=== PATIENT | male | born 1980 | race Hispanic/Latino ===

== ENCOUNTER 2016-10-14 10:49 | Emergency (ER) | payer BC, OTHER ==
[2016-10-14] MEDS ORDERED: Lidocaine 1% w/Epinephrine 1:100K 30 ML VIAL ONE (10:56)
[2016-10-14] MEDS ORDERED: Bacitracin Zinc 1 Packet ONE (11:28)
--- NOTE | 2016-10-14 12:51 | PICIS ---
[facility] EMERGENCY RECORD TRIAGE (10:53 KMOR) TRIAGE NOTES: Lower lip laceration after falling from horse at 2200 last night. No loc. (10:53 KMOR) PATIENT: NAME: Masood Jay, AGE: 36, GENDER: male, : Kathleen 1980, TIME OF GREET: Sun Oct 14, 2016 10:50, PREFERRED LANGUAGE: Azerbaijani, ECODE BILLING MAP: [facility], SSN: [id number], Zip Code: [address], KG WEIGHT: 99.79, PHONE: , , , PERSON ID: [id number], PCP: Susan CHRISTINA JAMES. (10:53 KMOR) PAYMENT: [employer]. (11:18) COMPLAINT: Lip laceartion. (10:53 KMOR) ADMISSION: URGENCY: 3 Urgent, ADMISSION SOURCE: Home, TRANSPORT: CAR, BED: ER -02. (10:53 KMOR) ASSESSMENT: Assessment: A&OX4. RR EVEN AND UNLABORED. (10:56 KMOR) PAIN: No complaint of pain. (10:56 KMOR) SIRS SCORING: Heart Rate 55-109 (0), Temp range 96.8-101.1 (0), respiratory rate 12-24 (0), Mental Status altered: no (0), Infection or Suspected Infection: No. (10:56 KMOR) IMMUNIZATIONS: Flu vaccine up to date, Tetanus immunization up to date, Date of immunization: 2013, Pneumococcal vaccine not up to date. (10:56 KMOR) PROVIDERS: TRIAGE NURSE: Dottie Marr RN. (10:53 KMOR) VITAL SIGNS: Pulse 86, Resp 18, O2 Sat 94, on Room Air, Time 10/14/2016 10:52. (10:52 KMOR) BP 153/92, Temp 98.4, (Oral), Pain 0, Time 10/14/2016 10:54. (10:54 KMOR) KNOWN ALLERGIES No Known Drug Allergies CURRENT MEDICATIONS (10:54 KMOR) None VITAL SIGNS VITAL SIGNS: Pulse: 86, Resp: 18, O2 sat: 94 on Room Air, Time: 10/14/2016 10:52. (10:52 KMOR) BP: 153/92, Temp: 98.4 (Oral), Pain: 0, Time: 10/14/2016 10:54. (10:54 KMOR) BP: 150/93, Pulse: 79, Resp: 16, Pain: 0, O2 sat: 96 on RA, Time: 10/14/2016 11:46. (11:46 KMOR) NURSING ASSESSMENT: SKIN CONSTITUTIONAL: Complex assessment performed, Patient arrives ambulatory, Gait steady, History obtained from patient, Patient appears comfortable, Patient cooperative, Patient alert, Oriented to person, place and time, Skin warm, Skin dry, Skin normal in color, Mucous membranes pink, Mucous membranes moist, Patient is well-groomed, Patient complains of lip and chin laceration, horn of the saddle struck patient in the face while being bucked off of a horse. happened at 2200 last night. pt denies LOC, denies problems &a-1R&a+25V*p+0X*d1763L*c202B*c15G*c2P*p-0X&a-25V&a+1R Name: Masood Jay : 1980 M36 MedRec: [id number] AcctNum: [id number] Prepared: Dasha Oct 14, 2016 11:58 by Interface Page 1 of 5 pMD [facility] EMERGENCY RECORD with vision, denies vomiting. pt has a sore left shoulder. (11:04 LGIB) SKIN: Inspection findings include laceration, to top of lip left side, no bleeding. laceration also to chin under bottom lip. (11:33 LGIB) NURSING PROCEDURE: DISCHARGE NOTE (11:46 KMOR) DISCHARGE: Patient discharged to home, ambulating without assistance, driving self, accompanied by //partner, Summary of Care printed/ provided, Transition record given to patient, Discharge instructions given to patient, Simple or moderate discharge teaching performed, by CARTER Sinclair, Discharge instructions and follow up reviewed with patient. Pt ambulatory to discharge desk., Prescriptions given and instructions on side effects given, Name of prescription(s) given: pcn, Above person(s) verbalized understanding of discharge instructions and follow-up care. BELONGINGS: Belongings remain with patient, Valuables remain with patient. VITAL SIGNS: BP: 150, / 93, Pulse: 79, Resp: 16, Pain: 0, O2 sat: 96, on: RA, Time: 1145. NURSING PROCEDURE: WOUND CARE (10:57 LGIB) TIMEOUT: Correct procedure verified, Correct site verified, Correct equipment utilized, Physician performing procedure Dr. Nolasco, Witnessed by CARTER Chen. WOUND CARE: Local infiltration with, 1% lidocaine with epinephrine, Wound repaired with sutures, by Dr Nolasco, Last tetanus shot received less than 5 years ago. SAFETY: Side rails up, Cart/Stretcher in lowest position, Call light within reach, Hospital ID band on. ORDER DETAILS Order Name: chart element #1, Status: Active, Time: 10:57 10/14/2016, User: System, - Ordered for: DO Nolasco Matthew, - Entered by: CARTER Mccoy, Phoebe Lou Oct 14, 2016 10:57, - Quantity: 1, Order Name: chart element #4, Status: Active, Time: 10:57 10/14/2016, User: System, - Ordered for: DO Nolasco Matthew, - Entered by: CARTER Mccoy Lauren - Dasha Oct 14, 2016 10:57, - Quantity: 1, Order Name: PROCEDURE SET-UP, Status: Done, Time: 11:03 10/14/2016, User: [email or web address], - Ordered for: DO Nolasco Matthew, - Entered by: DO Nolasco Matthew - Dasha Oct 14, 2016 10:57, - Quantity: 1. &a-1R&a+25V*p+0X*r7447G*c202B*c15G*c2P*p-0X&a-25V&a+1R Name: Jay Masood A : 1980 M36 MedRec: [id number] AcctNum: [id number] Prepared: Dasha Oct 14, 2016 11:58 by Interface Page 2 of 5 pMD [facility] EMERGENCY RECORD HPI LACERATION (11:44 MBRI) CHIEF COMPLAINT: Patient presents for evaluation of laceration to face, Patient presents for evaluation of laceration intra-orally, Patient presents for evaluation of laceration to lip, No foreign body, Not grossly contaminated, 2 wounds of the face: Upper right lip 1 cm through verm border, 2cm lat across the chin, through and through with lower int lip region. HISTORIAN: History provided by patient. MECHANISM OF INJURY: Alcohol use associated with this incident, Pt has fall last night and hit his lip and face. LOCATION: Symptoms are localized. QUALITY: Laceration quality straight. SEVERITY: Maximum severity of symptoms mild, Currently symptoms are mild. TIME COURSE: Sudden onset of symptoms, 15, hours prior to arrival, There has been no change in the patient's symptoms over time, are constant. ASSOCIATED WITH: No associated alcohol use, No associated bleeding, No associated erythema, No associated fever, No associated numbness, No associated significant tissue destruction, No associated tingling, No associated warmth, Denies any other complaints. COMPLICATING FACTORS: No complicating factors, no risk for infection. EXACERBATED BY: Patient's condition exacerbated by nothing. RELIEVED BY: Patient's condition relieved by nothing. TETANUS: Tetanus status up to date. ROS (11:47 MBRI) CONSTITUTIONAL: Negative constitutional review of systems. EYES: Negative eye review of systems. ENT: Negative ears, nose, throat review of systems. MUSCULOSKELETAL: Negative musculoskeletal review of systems. SKIN: Negative skin review of systems, Historian denies cellulitis, denies induration. NEUROLOGIC: Negative neurologic review of systems. HEMO/LYMPHATIC: Normal hematologic/lymphatic system review. PAST MEDICAL HISTORY (10:56 KMOR) MEDICAL HISTORY: No past medical history, Flu vaccine not up to date. MALE SURGICAL HISTORY: Patient has no surgical history. PSYCHIATRIC HISTORY: No previous psychiatric history. SOCIAL HISTORY: Patient drinks socially, every week, Patient denies drug use, Patient has no smoking history. PHYSICAL EXAM (11:47 MBRI) CONSTITUTIONAL: Vital signs reviewed. HEAD: Head exam included findings of, no Coronel's sign, No raccoon eyes, normocephalic, laceration superficial simple right upper lip, laceration through dermis horizontal chin,. EYES: Eye exam normal, Eye exam included findings of eyelids &a-1R&a+25V*p+0X*t1619F*c202B*c15G*c2P*p-0X&a-25V&a+1R Name: Masood Jay Laura : 1980 M36 MedRec: [id number] AcctNum: [id number] Prepared: Dasha Oct 14, 2016 11:58 by Interface Page 3 of 5 pMD [facility] EMERGENCY RECORD normal to inspection, Pupils equally round and reactive to light, Extraocular muscles intact. ENT: Ear exam normal, Nose exam normal, Pharynx exam normal, Uvula exam normal, Tonsil exam normal, Mouth exam included findings of, no lesions, Laceration noted, Tongue not elevated, wound of the internal lower lip. NO bleeding noted. PT with ext lower lip/chin lac and right upper lip lac. No bleeding at this time. NECK: Neck exam included findings of normal range of motion, no tenderness, no abrasions, no contusions, no ecchymosis. RESPIRATORY CHEST: Respiratory and chest exam normal. CARDIOVASCULAR: Cardiovascular assessment normal. BACK: Back exam included findings of normal inspection, no tenderness. UPPER EXTREMITY: Upper extremity exam normal, Upper extremity exam included findings of inspection normal, Range of motion normal. NEURO: Jeff coma scale 15, Neuro exam findings include patient oriented to person, place and time, Speech normal, Gait normal, Cranial nerves intact. SKIN: Skin exam included findings of skin warm, dry, and normal in color. EVENTS TRANSFER: Triage to Emergency Emergency Room -02. (Dasha Oct 14, 2016 10:53 KMOR) Removed from Emergency Emergency Room -02. (11:48 KMOR) O2SAT INTERPRETATION (10:58 MBRI) O2SAT: Oxygen saturation interpretation: Normal. LACERATION-SINGLE REPAIR TIMEOUT: Side and/or site verified. (11:30 MBRI) LACERATION REPAIR: Patient prepped and draped in usual sterile fashion, Wound irrigated with normal saline, Simple repair of laceration, to the lower lip, chin lateral, 2cm, total length 2.0 cm, Skin layer closed, using 5.0, prolene suture, 4 sutures, interrupted, After procedure, wound well approximated, antibiotic ointment applied, Tetanus status up to date, Patient tolerated the procedure well. (11:34 MBRI) Side and/or site verified, Patient identification confirmed, Sterile procedures observed, Verbal consent obtained, No contamination, Deep structures not involved, no bony deformity, no edema, no ecchymosis, no tendon involvement, no joint involvement, Wound not near a neurovascular bundle, No pulse deficit, Capillary refill greater than 2 seconds, No signs of compartment syndrome, Local infiltration with, 1% LIDOCAINE with epinephrine, 7mL, Patient prepped and draped in usual sterile fashion, Wound irrigated with normal saline, Simple repair of laceration, to the upper lip, right upper lip 1 cm through jose border no deep structures involved, total length 1.0 cm, Skin layer closed, using 5.0, prolene suture, 4 &a-1R&a+25V*p+0X*r6941I*c202B*c15G*c2P*p-0X&a-25V&a+1R Name: Masood Jay : 1980 M36 MedRec: [id number] AcctNum: [id number] Prepared: Dasha Oct 14, 2016 11:58 by Interface Page 4 of 5 pMD [facility] EMERGENCY RECORD sutures, interrupted, After procedure, wound well approximated, antibiotic ointment applied, Tetanus status up to date, Patient tolerated the procedure well, No foreign body present. (11:30 MBRI) PROBLEM LIST No recorded problems DIAGNOSIS (11:39 MBRI) FINAL: PRIMARY: lip laceration, ADDITIONAL: chin laceration, facial contusion. DISPOSITION PATIENT: Disposition Type: Discharge, Disposition: *Discharge Home, Condition: Improved. (11:39 MBRI) Patient left the department. (11:48 KMOR) INSTRUCTION (11:40 MBRI) DISCHARGE: LACERATION, LIP/MOUTH, CHIN LACERATION, SUTURE OR TAPE. FOLLOWUP: Susan CHRISTINA, [place], Internal Medicine, [address] [place] [id number], [phone], Follow up with Primary Care Physician as needed. SPECIAL: Please return for any further issues or concerns, we would be happy to see you. We hope you feel better soon. Tylenol or Advil for Pain May return to work Suture removal in 7 days. PRESCRIPTION (11:40 MBRI) PC Pen V K: TABLET : 500 mg : ORAL : Quantity: 1 Unit: tab(s) Route: ORAL Schedule: 4 times a day Dispense: 28 Unit: tab(s) May substitute. Refills: No Refills . NOTES: No refills. IMAGING (11:47 KMOR) *DISCHARGE INSTRUCTIONS RECEIPT: Image captured from scanner. *SUPPLY CHARGE SHEET: Image captured from scanner. Bañuelos: CONY=CARTER Marr, Dottie HARRIS=CARTER Mccoy, Phoebe ZIEGLER=DO Nolasco Matthew &a-1R&a+25V*p+0X*n9743V*c202B*c15G*c2P*p-0X&a-25V&a+1R Name: Abdiaziz Jayo Laura : 1980 6 MedRec: [id number] AcctNum: [id number] Prepared: aDsha Oct 14, 2016 11:58 by Interface Page 5 of 5 pMD [facility] MEDICATION RECONCILIATION You were seen in the Emergency Department on: SatOct 14, 2016 KNOWN ALLERGIES No Known Drug Allergies HOME MEDICATIONS None Notes from the emergency department Reviewed with patient PRESCRIPTIONS (1) &a-1R&a+25V*p+0X*v6729K*c202B*c15G*c2P*p-0X&a-25V&a+1R Name: Masood Jay : 1980 6 MedRec: [id number] AcctNum: [id number] Prepared: Dasha Oct 14, 2016 11:58 by Interface pMD MTDD
== END 2016-10-14 11:45 | disposition home or self-care (01) ==
LOC: BURERS 10:49
DX: S01.511A Laceration without foreign body of lip, initial encounter (principal); S01.81XA Laceration without foreign body of other part of head, initial encounter; S00.83XA Contusion of other part of head, initial encounter; W19.XXXA Unspecified fall, initial encounter
CPT/HCPCS: 12013; J2001